=== PATIENT | male | born 1965 | race Caucasian/White ===

== ENCOUNTER 2025-03-28 15:45 | Emergency (ER) | payer BC, SELFPAY ==
[2025-03-28 15:49] VITALS: BP 172/99; PULSE 106; RESP 20; TEMP 36.3; O2SAT 96
--- NOTE | 2025-03-28 15:54 | ED.GENADUL_ITS ---
Discharge Plan Disposition Patient Disposition: Home Discharge Details Clinical Impression: Acute pain of left knee, Acute internal derangement of left knee Primary Care Provider: None,None ED Provider: Nicolle Barragan Home Meds and New Rx's Prescriptions: No Action No Known Home Meds Discharge Instructions Instructions: Internal Derangement of the Knee (DC) Additional Instructions: Please call [facility] orthopedics first thing in the morning to schedule follow-up appointment. Your x-ray did not show any fracture, however there is a mild effusion noted. You likely have a soft tissue injury of the knee such as the meniscus or ligaments. I recommend the use the knee immobilizer at all times with crutches to maintain nonweightbearing status. May use Tylenol and ibuprofen as needed for discomfort. Do not drink alcohol while you are taking these medications. Elevate your knee above heart level and apply ice for 15 to 20 minutes for discomfort. Return to emergency care if you develop new color change/numbness to your lower leg or if you are very worried and need to be rechecked again immediately Stand Alone Forms: Work Release Referrals: [facility] [Provider Group] Discharge Data Discharge Date/Time-TO BE ENTERED AT DEPARTURE: 03/28/25 18:31 HPI General Date/Time Provider Initiated Documentation: 03/28/25 15:50 . HPI Narrative: Philippe is a 60-year-old male with no significant past medical history presents to the emergency department today for evaluation of left knee pain. Reports knee stiffness upon waking up on Saturday or Saturday, a recurring symptom which has been on and off since onset. 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 Stiffness intensified but subsided intermittently, described as a pinched nerve with discomfort radiating to hip and occasionally lower back. By Saturday, pain significantly reduced, and he could walk more comfortably. After spending a day on his feet with his grandson, developed tightness in both calves. This morning, noticed bilateral calf tightness upon waking, slightly improved after moving and having coffee. While working outside, experienced sudden snapping sensation in the back of left knee, causing him to feel like his knee was going to give out. Managed to stand but unable to walk due to pain, is only able to toe-touch, says pain radiates from the back of the knee up to the hip. Applied cooler to knee for 20-30 minutes, pain persisted. Denies associated fever/chills, change in energy level, nausea/vomiting, change in bowel or bladder function, other unusual joint aches, obvious swelling/redness to knee, distal numbness/tingling. Denies previous injury or surgery to this knee/hip or back. Related Data Home Medications ?Medication ?Instructions ?Recorded ?Confirmed Unknown [No Known Home Meds] 03/28/25 0 03/28/25 Allergies Allergy/AdvReac Type Severity Reaction Status Date / Time No Known Allergies Allergy Unverified 03/28/25 15:48 General Stated Complaint: Orthopedic SANTHOSH: 4 Exam Narrative Exam Narrative: General Appearance: Normal. Vital signs: Within normal limits. Back, Musculoskeletal: No T-spine or L-spine tenderness or step-off chest deformity with palpation. Right knee tenderness at posterior aspect. No visible swelling, redness, abrasions, or warmth. Unable to bear weight on affected leg, ambulates with limp on tiptoes. Extremities: No obvious laxity on anterior/posterior drawer test, varus or valgus test. Full extension and flexion of knee. Sensation grossly intact of bilateral lower extremities. Full rotation of hip without difficulty. Skin: Warm and dry, no rash. Psychiatric: Normal. Course Vital Signs Vital signs: Vital Signs Temperature 36.3 C L 03/28/25 15:49 Pulse 106 H 03/28/25 15:49 Respiratory Rate 20 03/28/25 15:49 Blood Pressure 172/99 H 03/28/25 15:49 Pulse Oximetry 96 03/28/25 15:49 Temperature 36.3 C L 03/28/25 15:49 Temperature Source Oral 03/28/25 15:49 Pulse 106 H 03/28/25 15:49 Respiratory Rate 20 03/28/25 15:49 Blood Pressure 172/99 H 03/28/25 15:49 Blood Pressure Position Sitting 03/28/25 15:49 Pulse Oximetry 96 03/28/25 15:49 Oxygen Delivery Method Room Air 03/28/25 15:49 Oxygen Flow Rate 0 03/28/25 15:49 Pain Level 8 03/28/25 15:49 Medical Decision Making Initial Assessment: 60-year-old male with knee injury. Reports stiffness, pain radiating to hip and lower back, sudden snapping sensation in back of knee, severe pain, and inability to walk. Applied ice with no relief. No swelling. Differential Diagnosis includes but is not limited to: Shahid's cyst, osteoarthritis, meniscal injury or other soft tissue/ligamentous injury, tendinitis, pinched nerve. No red flags concerning for septic joint, cauda equina or other spinal cord compression, or other serious etiologies requiring emergent blood work/advanced imaging at this time Xrays of hip and knee reassuring, no acute fracture. +small knee effusion noted. Final Assessment: L knee pain, concern for internal derangement Knee immobilizer provided along with crutch training. Referral to orthopedics made for further evaluation/management. PCP referral also provided, as patient does not currently have an established PCP. Reviewed discharge instructions with patient, including orthopedics follow-up, use of knee immobilizer/crutches, and red flags indicate need for return to emergency care. Patient consented to the use of [facility] Imaging Data Radiologic Study: Radiologist's impression: PROCEDURE INFORMATION: Exam: XR Left Knee Exam date and time: 03/28/2025 4:50 PM Age: 60 years old Clinical indication: Pain; Hip; Left TECHNIQUE: Imaging protocol: Radiologic exam of the left knee. Views: 4 or more views. COMPARISON: No relevant prior studies available. FINDINGS: Bones/joints: There is a small left knee effusion. Bone density is appropriate. Alignment is anatomic. No evidence for fracture. Soft tissues: Normal. IMPRESSION: Small joint effusion Radiologic Study #2: Radiologist's impression: PROCEDURE INFORMATION: Exam: XR Left Hip Exam date and time: 03/28/2025 4:58 PM Age: 60 years old Clinical indication: Hip pain; Left hip; Additional info: L knee pain radiating to L hip TECHNIQUE: Imaging protocol: Radiologic exam of the left hip. Views: 2 or 3 views hip with pelvis when performed. COMPARISON: No relevant prior studies available. FINDINGS: Bones/joints: Unremarkable. No acute fracture. Soft tissues: Unremarkable. IMPRESSION: No evidence for acute abnormality. PFSH All Active Problems (Updated 03/28/25 @ 18:25 by Nicolle Howe) Acute internal derangement of left knee (Acute) Acute pain of left knee (Acute) Social History Smoking/Tobacco Use Status: Former Tobacco Use Smoking risk assessment performed?: Yes Alcohol Intake: current Alcohol Intake frequency: a few times a week Alcohol type: hard liquor Drug use: Never Housing: house Do you feel safe at home: Yes Do you feel safe in your relationship?: Yes
--- NOTE | 2025-03-28 16:15 | DI.RAD_ITS ---
Exam(s) XR KNEE LT 4V AP,LAT,ELZA,PAT EXAM: XR KNEE LT 4V AP,LAT,ELZA,PAT CLINICAL HISTORY: posterior knee pain, instability. TECHNIQUE: 2D digital imaging was performed. COMPARISON: No exams were available for comparison FINDINGS: Four views No evidence of fracture nor prominent joint effusion. May be a small amount of increased joint fluid. There is a large enthesophyte at the anterosuperior aspect of the patella insertion site of the quadriceps tendon. Bone density normal. No osseous lesions. No degenerative changes. IMPRESSION: No acute osseous findings. Suggestion of small joint effusion. DATA REPOSITORY: RADIATION DOSE DELIVERED:
--- NOTE | 2025-03-28 16:15 | DI.RAD_ITS ---
Exam(s) XR HIP LT COMPLETE AP PELVIS EXAM: XR HIP LT COMPLETE AP PELVIS CLINICAL HISTORY: L knee pain radiating to L hip. TECHNIQUE: 2D digital imaging was performed. COMPARISON: No exams were available for comparison FINDINGS: Two views No evidence of pelvic nor hip fracture. No osseous lesions. Bone density normal. Minimal degenerative changes. IMPRESSION: No acute osseous findings in the pelvis-hips DATA REPOSITORY: RADIATION DOSE DELIVERED:
[2025-03-28] MEDS: Acetaminophen 500 MG TAB 1000 MG PO (16:21)
[2025-03-28] MEDS: Ibuprofen 800 MG TAB PO (16:21)
[2025-03-28 17:30] VITALS: BP 143/91; PULSE 81; RESP 14; O2SAT 95
--- NOTE | 2025-03-28 17:52 | DI.VRAD_ITS ---
PROCEDURE INFORMATION: Exam: XR Left Knee Exam date and time: 03/28/2025 4:50 PM Age: 60 years old Clinical indication: Pain; Hip; Left TECHNIQUE: Imaging protocol: Radiologic exam of the left knee. Views: 4 or more views. COMPARISON: No relevant prior studies available. FINDINGS: Bones/joints: There is a small left knee effusion. Bone density is appropriate. Alignment is anatomic. No evidence for fracture. Soft tissues: Normal. IMPRESSION: Small joint effusion. Dictated and Authenticated by: Esme Webster MD. Orderin Mina Valverde MD
--- NOTE | 2025-03-28 17:56 | DI.VRAD_ITS ---
PROCEDURE INFORMATION: Exam: XR Left Hip Exam date and time: 03/28/2025 4:58 PM Age: 60 years old Clinical indication: Hip pain; Left hip; Additional info: L knee pain radiating to L hip TECHNIQUE: Imaging protocol: Radiologic exam of the left hip. Views: 2 or 3 views hip with pelvis when performed. COMPARISON: No relevant prior studies available. FINDINGS: Bones/joints: Unremarkable. No acute fracture. Soft tissues: Unremarkable. IMPRESSION: No evidence for acute abnormality. Dictated and Authenticated by: Esme Webster MD. Orderin Mina Valverde MD
== END 2025-03-28 18:31 | disposition home or self-care (01) ==
PROVIDERS: Emergency Provider Nurse Practitioner Family
DX: M23.92 Unspecified internal derangement of left knee (principal); M25.552 Pain in left hip; M25.562 Pain in left knee
CPT/HCPCS: 99283; 99284; 73502; 73564

== ENCOUNTER 2025-04-27 01:18 | Outpatient (CLI) | payer BC, SELFPAY ==
[2025-04-27 14:18] LABS: HCT 47.6 % (40.0-50.0); HGB 16.4 g/dL (13.5-17.5); MCH 30.1 pg (27.0-33.0); MCHC 34.5 % (32.0-36.0); MCV 87 fL (80-95); MPV 10.3 fL (8.0-11.0); Platelet Count 250 10^3/uL (130-400); RBC 5.45 10^6/uL (4.36-5.78); RDW 12.6 % (11.8-14.1); RDW-SD 40.1 fL; WBC 7.43 10^3/uL (4.4-10.8)
[2025-04-27 14:23] LABS: Hemoglobin A1C 5.6 % (<5.7)
[2025-04-27 14:27] LABS: ALT 39 U/L (16-63); AST 6 U/L (15-37); Albumin 4.0 g/dL (3.4-5.0); Alkaline Phosphatase 105 U/L (46-116); Anion Gap 10.3 mmol/L (3-11); BUN 23 mg/dL (7-18); Bilirubin, Total 0.3 mg/dL (0.2-1.0); CO2 23.7 mmol/L (21.0-32.0); Calcium 9.0 mg/dL (8.5-10.1); Calculated LDL 125 mg/dL (<100); Chloride 103 mmol/L (98-107); Cholesterol 225 mg/dL (<200); Estimated GFR 98.38 (mL/min/1.73m2); Glucose 121 mg/dL (74-106); HDL Cholesterol 32 mg/dL (>or=40); Potassium 4.1 mmol/L (3.5-5.1); Sodium 137 mmol/L (136-145); Total Protein 7.5 g/dL (6.4-8.2); Triglyceride 340 mg/dL (<150)
[2025-04-27 23:31] LABS: PSA, Screening 0.9 ng/mL (<=3.5)
== END 2025-04-27 01:19 | disposition home or self-care (01) ==
LOC: LOS 01:18
PROVIDERS: PCP Nurse Practitioner Family; Visit Provider Nurse Practitioner Family
DX: Z00.00 Encounter for general adult medical examination without abnormal findings (principal); Z13.1 Encounter for screening for diabetes mellitus; Z13.220 Encounter for screening for lipoid disorders; Z12.5 Encounter for screening for malignant neoplasm of prostate
CPT/HCPCS: 36415; 80053; 80061; 84153; 85027; 83036